=== PATIENT | female | born 1995 | race Caucasian/White ===

== ENCOUNTER 2020-11-07 12:35 | Emergency (ER) | payer BC ==
[~2020-11-07] VITALS: Ht 167.6 cm; Wt 65.8 kg
[2020-11-07 12:42] VITALS: BP 123/75
== END 2020-11-07 13:32 | disposition home or self-care (01) ==
LOC: ER 12:35
DX: S60.511A Abrasion of right hand, initial encounter (principal); W01.0XXA Fall on same level from slipping, tripping and stumbling without subsequent striking against object, initial encounter; Y93.89 Activity, other specified; Y92.89 Other specified places as the place of occurrence of the external cause; Y99.8 Other external cause status
CPT/HCPCS: 73130-TC